=== PATIENT | female | born 1975 | race Caucasian/White ===

== ENCOUNTER → 2016-11-10 | Outpatient (CLI) | payer BC ==
--- NOTE | 2016-11-10 08:55 | KCIC ---
EXAM: Lumbar spine MRI without contrast. HISTORY: Acute right-sided back pain. Right foot numbness. TECHNIQUE: Multiplanar, multisequence magnetic resonance imaging of the lumbar spine was performed without contrast. COMPARISON: None. FINDINGS: There is no listhesis. The vertebral bodies are normal in height. There are several small hemangiomas. No suspicious osseous lesion is seen. The conus terminates at L1. At L1-L2, there is no stenosis. At L2-L3, there is a left foraminal annular tear. There is no stenosis. At L3-L4, there is no stenosis. At L4-L5, there is a suspected shallow left foraminal to extraforaminal disc protrusion and endplate remodeling. There is no stenosis. At L5-S1, there is a suspected shallow right foraminal extra foraminal disc protrusion and endplate remodeling. There is no stenosis. IMPRESSION: 1. No acute finding or significant foraminal or central canal stenosis. 2. Minimal degenerative change, described above. Electronically signed by: Cassie Wick MD (11/10/2016 8:52 AM)
== END ==
LOC: KCIC MRI 07:44
PROVIDERS: ATTEND General Practice
DX: M54.41 Lumbago with sciatica, right side (principal); M47.816 Spondylosis without myelopathy or radiculopathy, lumbar region
CPT/HCPCS: 72148